=== PATIENT | female | born 1965 | race Hispanic/Latino ===

== ENCOUNTER 2019-11-10 09:23 | Outpatient (CLI) | payer OTHER ==
--- NOTE | 2019-11-10 10:10 | ULT ---
US Gallbladder RUQ: 11/10/2019 12:00 AM CLINICAL HISTORY: Epigastric abdominal pain. STUDY: Limited right upper quadrant ultrasound of abdomen. COMPARISON: None. FINDINGS: Liver: Size: Normal. Echogenicity: Normal. Contour: Smooth. Mass: None. Bile ducts: No intrahepatic or extrahepatic biliary dilatation. Common bile duct measures 3 mm. Gallbladder: Cholelithiasis. Pancreas: Head, body, and tail appear normal. Right kidney: No pelvicalyceal dilatation. Right kidney measuring 9.9 cm in length. IMPRESSION: Cholelithiasis
== END 2019-11-10 09:24 | disposition home or self-care (01) ==
LOC: SCSULT 09:23
PROVIDERS: ATTEND Internal Medicine
DX: K59.09 Other constipation (principal); R10.13 Epigastric pain; K80.20 Calculus of gallbladder without cholecystitis without obstruction
CPT/HCPCS: 76705

== ENCOUNTER 2021-05-11 09:16 | Outpatient (CLI) | payer OTHER | END 2021-05-11 09:17 | disposition home or self-care (01) | LOC: BICRAD 09:16 | PROVIDERS: ATTEND Surgery | DX: R10.12 Left upper quadrant pain (principal) | CPT/HCPCS: 74019 ==

== ENCOUNTER 2021-05-24 05:53 | Day surgery (SDC) | payer OTHER ==
[2021-05-22 13:55] VITALS: BMI 34.2
[2021-05-24] MEDS ORDERED: Fentanyl 100 MCG/2 ML VIAL ONE ×3 (06:15→09:10)
[2021-05-24] MEDS ORDERED: EPINEPHrine 1 MG/ML AMP ONE (06:42)
[2021-05-24] MEDS ORDERED: Lidocaine 1% (PF) 30 ML VIAL ONE (06:42)
[2021-05-24] MEDS ORDERED: Bupivacaine PF 0.5% 30 ML VIAL ONE ×2 (06:43→06:48)
[2021-05-24] MEDS ORDERED: cefOXitin 2 GM VIAL ONE (07:11)
[2021-05-24] MEDS ORDERED: Vancomycin 1 GM/200 ML BAG ONE (07:14)
[2021-05-24] MEDS ORDERED: Dexamethasone 20 MG/5 ML VIAL ONE (07:56)
[2021-05-24] MEDS ORDERED: Ketorolac Tromethamine 30 MG/ML VIAL ONE (07:56)
[2021-05-24] MEDS ORDERED: Lidocaine 1% PF 5 ML VIAL ONE (07:56)
[2021-05-24] MEDS ORDERED: Glycopyrrolate 0.2 MG/ML 5 ML SYRINGE ONE (07:56)
[2021-05-24] MEDS ORDERED: ePHEDrine 50 MG/ML VIAL ONE (07:56)
[2021-05-24] MEDS ORDERED: PROPOFOL 200 MG/20 ML VIAL ONE (07:56)
[2021-05-24] MEDS ORDERED: Ondansetron PF 4 MG/2 ML Vial ONE (07:56)
[2021-05-24] MEDS ORDERED: Rocuronium Bromide 10 MG/ML (10ML VIAL) ONE (07:56)
[2021-05-24] MEDS ORDERED: HYDROcodone/Acetaminophen 5/325 mg Tablet ONE (10:08)
[2021-05-24] MEDS ORDERED: Promethazine HCl 25 MG/ML VIAL ONE (11:05)
== END 2021-05-24 12:26 | disposition home or self-care (01) ==
LOC: SDC 05:53
PROVIDERS: ATTEND Surgery
PROC: 0FT44ZZ Resection of Gallbladder, Percutaneous Endoscopic Approach (ICD-10-PCS; principal; 2021-05-24)
DX: K80.10 Calculus of gallbladder with chronic cholecystitis without obstruction (principal); Z79.890 Hormone replacement therapy; Z88.0 Allergy status to penicillin
CPT/HCPCS: 88304; C1713; J0171; J0694; J1100; J1885; J2001; J2405; J2550; J2704; J3010; J3370; J3490; S0020